=== PATIENT | male | born 1935 | race Caucasian/White ===

== ENCOUNTER 2020-12-10 09:59 | Day surgery (SDC) | payer MEDICARE, OTHER, SELFPAY ==
--- NOTE | 2020-12-06 14:17 | EKG12_ITS ---
Test Reason : PREOP Blood Pressure : / mmHG Vent. Rate : 059 BPM Atrial Rate : 059 BPM P-R Int : 184 ms QRS Dur : 092 ms QT Int : 382 ms P-R-T Axes : 048 057 051 degrees QTc Int : 378 ms Sinus bradycardia Otherwise normal ECG Confirmed by ESTEBAN MCCRARY, PACHECO ([id number]), technical writer and editor BALDEV PERALES ([id number]) on 12/09/2020 1:12:52 PM Referred By: Marshall Braxton Confirmed By:PACHECO ORELLANA MD
[2020-12-06 15:22] LABS: Hematocrit 45.3 % (40-54); Hemoglobin 14.9 g/dL (13.0-16.5); Mean Corp Hgb Conc 32.9 g/dL (32-36); Mean Corpuscular Hgb 33.9 pg (27.0-32.0); Mean Corpuscular Volume 103.2 fL (80-94); Platelet Count 194 K/mm3 (150-450); RBC Distribution Width CV 14.6 % (11.6-14.6); RBC Distribution Width SD 55.8 fl (35.1-43.9); Red Blood Count 4.39 M/mm3 (4.6-6.2); White Blood Count 5.6 K/mm3 (4.4-11.0)
[2020-12-06 15:28] LABS: Partial Thromboplast Time 28.5 Seconds (24.1-36.2)
[2020-12-06 15:53] LABS: Anion Gap 6 (5-15); BUN 21 mg/dL (7-18); BUN/Creat Ratio 15.2 RATIO (10-20); Calcium,Total 9.2 mg/dL (8.5-10.1); Chloride 109 mmol/L (98-107); Creatinine, Serum 1.38 mg/dL (0.70-1.30); EST Glomerular Filtration Rate 52 mL/min (>60); Est Glom Filt Rate - Afr Amer 63 mL/min (>60); Glucose 111 mg/dL (74-106); Potassium 4.2 mmol/L (3.5-5.1); Sodium Level 139 mmol/L (136-145)
[2020-12-10 10:38] VITALS: BP 146/80; PULSE 58; RESP 16; TEMP 36.9; O2SAT 94; BMI 25.0
[2020-12-10] MEDS: Lactated Ringers 1,000 ML 100 ML IV ×2 (10:44→13:16)
[2020-12-10] MEDS: Lidocaine 1% /Epi 1:100 (20ml) 20 ML Vial (12:34)
[2020-12-10] MEDS: Oxymetazoline 0.05% 1 SPRAY SPRAY.BTL 15 SPRAY (12:34)
[2020-12-10] MEDS: Mupirocin Ointment 22gm Tube 1 APPLIC (13:10)
--- NOTE | 2020-12-10 14:40 | PCM.DC ---
Discharge Instructions Diet Discharge Diet: No restrictions Activity Discharge Activity: Return to Normal Activity Dressing / Incision Call your doctor if your incision/area has: Sudden Increased Bleeding Additional Dressing/Incision Instructions:: sleep with head of bed elevated. saline to both nostrils 5 times daily. mupirocin to incision and both nostrils twice daily. keep the outer cast dry - except the morning that you follow up in clinic, get it very wet in the shower so it comes off easily in the shower. Follow Up Care Please Follow Up With: Marshall Braxton MD When: 1 week Test Results: Test results from this visit will be discussed in further detail at your follow-up appointment, if applicable. Discharge Plan Admission Attending Provider: Marshall Braxton Primary Care Provider: Shannon Sweet Discharge Orders/Prescriptions Prescriptions: No Action calcium carbonate-vitamin D3 [Calcium 600 + D(3)] 1 EACH tablet 1 ea PO DAILY RF: 0 losartan 50 mg Tablet 80 mg PO QHS RF: 0 latanoprost 0.005 % Drops 1 drp EACH EYE DAILY RF: 0 testosterone propionate 100 mg/mL Oil 1 mg subcut DAILY RF: 0 nifedipine 90 mg Tablet Extended Release 24hr 90 mg PO DAILY RF: 0 divalproex 500 mg Tablet Extended Release 24 Hr 500 mg PO DAILY RF: 0 Zinc Chelated 25 mg Tablet 25 mg PO DAILY RF: 0 Neuro Yuliet Tablet 1 tab PO DAILY RF: 0 cholecalciferol (vitamin D3) [Vitamin D3] 25 mcg (1,000 unit) Capsule 25 mcg PO QHS RF: 0 bilberry fruit 1,000 mg Capsule 1 g PO BID RF: 0 rosuvastatin [Crestor] 5 mg Tablet 5 mg PO DAILY RF: 0 Combigan 0.2-0.5 % Drops 1 drp EACH EYE QHS RF: 0 dorzolamide-timolol (PF) 2-0.5 % Dropperette 1 drp OPHTHALMIC (EYE) TID RF: 0 magnesium oxide 400 mg magnesium Capsule 400 mg PO DAILY RF: 0 Probiotic 3 billion cell Capsule 3,000 mmu cells PO BID RF: 0 Black Bolton Extract 2 cap PO/SL BID RF: 0 Cataplex B 2 1 cap PO/SL BID RF: 0 Disposition Discharge Orders: Discharge Patient (Routine); Ordered 12/10/20 Ordered By: Dr. Marshall Braxton
--- NOTE | 2020-12-10 14:43 | OP.PCM_ITS ---
Problems Associated Problem List Diagnoses (1) Nasal congestion: (2) Acquired deformity of nose: (3) Nasal valve collapse: (4) Nasal bone fracture: (5) Deviated septum: Report of Operation Date of Procedure: 12/10/20 Pre-Operative Diagnosis: 1. nasal congestion 2. nasal septal deviation 3. nasal bone fracture 4. inferior turbinate hypertrophy, right and left 5. internal nasal valve collapse, right and left Post-Operative Diagnosis: 1. nasal congestion 2. nasal septal deviation 3. nasal bone fracture 4. inferior turbinate hypertrophy, right and left 5. internal nasal valve collapse, right and left Surgery/Procedure Performed:: 1. open septorhinoplasty 2. correction internal nasal valve collapse, right and left 3. open correction nasal bone fracture, right and left 4. submucous resection of inferior turbinates, right and left Surgeon: Marshall Braxton Type of Anesthesia: General Description of Procedure: On the day of the procedure, after appropriate informed consent was obtained, the patient was brought to the operating room and placed in a supine position on the operating room table. The patient was placed under general endotracheal anesthesia by the anesthesiologist. The endotracheal tube was secured. Lacri-Lube was placed in the eye and Tegaderm was placed over the eyes. The table was rotated 90 degrees towards the surgeon. The nose was injected with 1% lidocaine with epinephrine. The face was prepped and draped in sterile fashion. Bilateral nasal cavities were decongested with oxymetazoline- soaked pledgets. An inverted-V columellar incision was made with a Baltic blade. This traversed into the left and right marginal incisions using an Iris scissors and 3-point retraction. The scroll region and lower lateral cartilages were dissected on the right and left and the upper lateral cartilages were dissected on the right and left as the nose was opened. The medial crura were lateralized with an Adson-Brown forceps and the anterior septal angle was found with a Bovie electrocautery. Submucoperichondrial flaps were developed on the patient's right and left using a [place] elevator. They were taken posteriorly to the bony cartilaginous junction and inferiorly to the maxillary crest. A 1.5-cm L-strut was preserved and the remainder of the cartilaginous septum was removed with a D-knife and a Kira elevator. Deviated portions of the perpendicular plate of the ethmoid bone and vomer were removed with the Lex-Alireza. The head of the right and left inferior turbinates were injected with 1% lidocaine with epinephrine. The head of the left inferior turbinate was incised with the #15 blade. It was dissected submucosally using a [place] elevator, reduced using suction electrocautery, and outfractured using a Boies elevator. Similarly, the head of the right inferior turbinate was incised with a #15 blade. It was dissected submucosally using a Kira elevator, reduced using suction electrocautery, and outfractured using a Boies elevator. The right and left upper lateral cartilages were disarticulated from the nasal septum using a #15 blade. A 1 cm x 2 mm right and left internal ear pull machine operator graft was inserted in between the right upper cartilage and the nasal septum as well as the left upper lateral cartilage and nasal septum. These were sutured maxwell vidually into place using 4-0 PDS. The piriform aperture on the left and right was exposed lateral to the scroll region on the left side as well as lateral to the upper lateral cartilage on the left side. Using the appropriate drill bit and irrigation, a small hole was drilled in the piriform bone and the Mitek bone-anchored system was placed into the hole. The left-sided lateral scroll region was sutured and tied. Similarly, on the patient's right side, the right piriform aperture lateral to the right scroll region and right upper lateral cartilage was exposed, and using the drill bit and irrigation, a hole was drilled. The Mitek bone-anchored system was put into place and the lateralmost portion of the scroll region on the right side was sutured and tied. A flaring stitch was then placed using 4-0 PDS through the upper lateral cartilages as well as through the lower lateral cartilages in a transverse fashion. lateral osteotomies were made internally with an osteotome on the left then right. The septum was closed with interrupted 4-0 chromic, the columellar incision with 7-0 Vicryl, and the marginal incisions with interrupted 4-0 chromic. A dorsal nasal splint and Tinajero splints were sutured into place and an orogastric tube was inserted and contents were evacuated. The table was rotated 90 degrees toward the anesthesiologist, where the patient was subsequently extubated uneventfully. The patient was transferred to the postanesthesia care unit in stable condition
[2020-12-10 14:48] VITALS: BP 146/80; BP 174/88; PULSE 57; RESP 16; TEMP 36.5; O2SAT 93
[2020-12-10 15:00] VITALS: BP 146/80; BP 154/87; PULSE 53; RESP 16; O2SAT 93
[2020-12-10 15:15] VITALS: BP 146/80; BP 167/85; PULSE 57; RESP 16; O2SAT 95
[2020-12-10 15:30] VITALS: BP 146/80; BP 170/91; PULSE 57; RESP 16; TEMP 36.4; O2SAT 96
[2020-12-10] MEDS: HYDROcodone Bitartrate/Apap 5/325 Tablet PO (15:52)
[2020-12-10 16:53] VITALS: BP 146/80; BP 175/85; PULSE 59; RESP 16; TEMP 36.1; O2SAT 98
== END 2020-12-10 17:19 | disposition home or self-care (01) ==
LOC: SDC 10:00 → AC 10:00
PROVIDERS: Anesthesiology; PCP Family Medicine; Referring Provider Otolaryngology; Visit Provider Otolaryngology
PROC: (CPT 20912; principal; 2020-12-10 11:35)
DX: J34.2 Deviated nasal septum (principal); J34.3 Hypertrophy of nasal turbinates; M95.0 Acquired deformity of nose; J34.89 Other specified disorders of nose and nasal sinuses; S02.2XXA Fracture of nasal bones, initial encounter for closed fracture; R09.81 Nasal congestion; I10 Essential (primary) hypertension; E11.9 Type 2 diabetes mellitus without complications; G47.30 Sleep apnea, unspecified; I63.9 Cerebral infarction, unspecified; H53.8 Other visual disturbances; C44.90 Unspecified malignant neoplasm of skin, unspecified; Z87.891 Personal history of nicotine dependence; Z86.79 Personal history of other diseases of the circulatory system; Z79.899 Other long term (current) drug therapy
CPT/HCPCS: 20912; 30140; 30420; 36415; 80048; 85027; 85730; 93005; J7120; J2405

== ENCOUNTER → 2022-01-30 | Outpatient (CLI) | payer MEDICARE, OTHER, SELFPAY ==
--- NOTE | 2022-01-29 | LES_PTH ---
PATIENT: JIA CALVO LOC: [facility] U#:[id number] AGE/SX: 86/M ROOM: RE01/30/[address]: Dr. Daniel Johns MD : [id number] BED: DIS: 01/30/2022 SPEC #: [id number] RECD: 01/30/22 10:00 STATUS: JAY BANDAR #: [id number] NICOLE: 01/29/22 00:[address]: Daniel Johns DEPT: SURGICAL PATHOLOGY RECD BY: Rona Wilson ENTERED: 01/30/22 12:52 SP TYPE: Lesion OTHR DR: Dr. Shannon Sweet MD Tissues: Skin of eyelid, NOS Procedures: Surgery Specimen Level IV HEADER OPERATION: Biopsy of lesion left lower lid PRE-OP DIAGNOSIS: Present 1 year, doubled in size over that time TISSUE SUBMITTED: Lesion left lower lid MICROSCOPIC DIAGNOSIS Left lower eyelid lesion, biopsy: Seborrheic keratosis with actinic change. AM:anna 02/02/2022 MICROSCOPIC DESCRIPTION Slides are reviewed. GROSS DESCRIPTION Received in fixative is one container labeled with the patient's name and designated left lower lid. The specimen consists of an irregular fragment of so tissue measuring 0.6 x 0.3 x 0.1 cm. The specimen is serially sectioned and totally submitted in one cassette. / AM:anna 01/30/2022 TC:5 CPT: 62070
== END | disposition home or self-care (01) ==
LOC: LABSPEC 10:53
PROVIDERS: PCP Family Medicine; Visit Provider Ophthalmology
DX: L82.1 Other seborrheic keratosis (principal)
CPT/HCPCS: 88305